=== PATIENT | male | born 2000 ===

== ENCOUNTER 2022-08-31 17:37 | Emergency (ER) | payer OTHER ==
[2022-08-31 19:32] LABS: SARS-CoV-2 NAA Rapid Test Not Detected (NotDetected)
== END 2022-08-31 20:03 | disposition home or self-care (01) ==
LOC: ERS 17:37
DX: B34.9 Viral infection, unspecified (principal); Z20.822 Contact with and (suspected) exposure to COVID-19
CPT/HCPCS: 99283